=== PATIENT | male | born 1940 | race Caucasian/White ===

== ENCOUNTER 2017-03-21 13:24 | Emergency (ER) | payer MEDICARE ==
[2017-03-21] MEDS ORDERED: HYDROmorphone 1 MG/ML Syringe IVPUSH ONE (13:28)
--- NOTE | 2017-03-21 13:35 | EDM.PDOC ---
ED HPI GENERAL MEDICAL PROBLEM - General Chief Complaint: Upper Extremity Injury/Pain Stated Complaint: CUT FINGER WHILE USING SAW Time Seen by Provider: 03/21/17 13:32 Source of Information: Reports: Patient, RN Notes Reviewed History Limitations: Reports: No Limitations - History of Present Illness INITIAL COMMENTS - FREE TEXT/NARRATIVE: 76-year-old gentleman presents emergency department today after a table saw injury, he drove approximately one hour habitation distal tip digits 2 and 3 on the left hand, he is not taking anything for pain - Related Data Allergies Allergy/AdvReac Type Severity Reaction Status Date / Time No Known Allergies Allergy Verified 03/21/17 13:31 Home Meds: Home Meds Erythromycin Base [Erythromycin 0.5% Ophth Oint] 1 cm TOP DAILY 03/21/17 [ History] Pravastatin Sodium [Pravastatin Sodium] 1 tab PO DAILY 03/21/17 [History] Tamsulosin HCl [Tamsulosin HCl] 2 tab PO DAILY 03/21/17 [History] Past Medical History Neurological History: Reports: CVA Social & Family History - Tobacco Use Smoking Status *Q: Never Smoker Review of Systems - Review of Systems Review Of Systems: See Below Constitutional: Reports: No Symptoms Musculoskeletal: Reports: Joint Pain (Finger pain) Skin: Reports: Wound Neurological: Reports: Numbness, Tingling ED EXAM, GENERAL - Physical Exam Exam: See Below Free Text/Narrative:: Examination of left hand he does have amputations of the distal tips digits #2 and 3 digit #2 is missing from just be on the nail bed digit #3 very distal tip , radial pulse is +2 for range of motion of digits Exam Limited By: No Limitations General Appearance: Alert, Mild Distress ED TRAUMA EXTREMITY PROCEDURES - Laceration/Wound Repair Left Finger Lac/Wound Length In cm: 1 (Amputation wound was closed to control bleeding) Appearance: Muscle, Mildly Contaminated Distal NVT: Neuro & Vascular Intact Anesthetic Type: Digital Local Anesthesia - Lidocaine (Xylocaine): 1% Plain Local Anesthetic Volume: 4cc Skin Prep: Saline Saline Irrigation (cc's): 1,000 Exploration/Debridement/Repair: Wound Explored, In a Bloodless Field, Explored to Base Suture Size: 3-0 # of Sutures: 3 (Wound was closed to control bleeding) Sterile Dressing Applied: Nurse Tetanus Status Addressed: Yes Complications: No Course - Vital Signs Last Recorded V/S: Last Vital Signs Temp 97.7 F 03/21/17 13:40 Pulse 102 H 03/21/17 13:40 Resp 16 03/21/17 13:40 BP 152/94 H 03/21/17 13:40 Pulse Ox 93 L 03/21/17 13:40 - Orders/Labs/Meds Meds: Medications Discontinued Medications Generic Name Dose Route Start Last Admin Trade Name Susi PRN Reason Stop Dose Admin Hydromorphone HCl 1 mg 03/21/17 13:28 03/21/17 13:49 Dilaudid IVPUSH 03/21/17 13:29 1 mg ONETIME ONE Administration Cefazolin Sodium/Dextrose 1 gm 50 mls @ 100 mls/hr 03/21/17 14:15 03/21/17 14 :19 / Premix IV 03/21/17 14:44 100 mls/hr ONETIME ONE Administration Lidocaine HCl 5 ml 03/21/17 14:02 03/21/17 14:17 Xylocaine-Mpf 1% INJECT 03/21/17 14:03 5 ml ONETIME ONE Administration Departure - Departure Time of Disposition: 15:11 Disposition: Home, Self-Care 01 Condition: Good Clinical Impression: Amputation of left middle finger, Amputation of left index finger - Discharge Information Referrals: [facility] MD [Primary Care Provider] - Forms: ED Department Discharge Additional Instructions: Please follow-up with Dr. Fan orthopedics on Friday and will call with appointment time call return to the emergency department worsening of symptoms - Assessment/Plan Plan: Assessment Acuity = acute Site and laterality = amputation distal tip of digit #2 and digit #3 Etiology = secondary to table saw injury Manifestations = none Location of injury = Home Lab values = x-rays describe them limitations above he is missing three fourths of the distal phalange he on digit #2 Plan He was given 1 g Ancef tetanus was in 2014 provided 20 hydrocodone 1 tablet by mouth 3 times a day when necessary he is to follow-up with orthopedics on Friday Dr. Ant Fan Patient was in agreement with the plan all questions were answered, they were instructed to return to the emergency department or call for worsening symptoms. This note was dictated using [employer] voice recognition software please call with any questions.
--- NOTE | 2017-03-21 13:57 | CR ---
Hand Comp Min 3V Lt INDICATION: saw trauma FINDINGS: Amputation of the majority of the distal phalanx of the second digit. Soft tissue injury di stal third digit. Advanced degenerative changes SST joint.
[2017-03-21] MEDS ORDERED: ceFAZolin 1 GM in Premix Bag 1 BAG IV ONE ×2 (14:02→14:15)
== END 2017-03-21 15:28 | disposition home or self-care (01) ==
LOC: JP.ED 13:24
DX: S68.113A Complete traumatic metacarpophalangeal amputation of left middle finger, initial encounter (principal); S68.111A Complete traumatic metacarpophalangeal amputation of left index finger, initial encounter; W27.0XXA Contact with workbench tool, initial encounter; Z88.1 Allergy status to other antibiotic agents; Z79.899 Other long term (current) drug therapy
CPT/HCPCS: 12001; 73130; 96365; 96375; 99284; J0690; J1170